=== PATIENT | female | born 1995 | race Caucasian/White ===

== ENCOUNTER 2016-08-07 23:19 | Emergency (ER) | payer OTHER ==
[2016-08-07] MEDS ORDERED: LACTATED RINGERS 1,000 ML ONE (23:37)
[2016-08-07] MEDS ORDERED: ONDANSETRON 4 MG/2ML 2 ML VIAL ONE (23:37)
[2016-08-08 00:50] LABS: ABSOLUTE NEUTROPHIL COUNT 4.6 K/mm3 (1.8-7.7); BASO % 0.4 % (0.2-1.0); EOS % 0.4 % (0.9-2.9); HEMATOCRIT 38.1 % (37.0-47.0); HEMOGLOBIN 12.4 gm/l (12.0-16.0); IMM NEUT% 0.5 % (0-1); LYMPH % 26.4 % (15-45); MEAN CELL VOLUME 85.6 fl (81.0-99.0); MEAN CORPUSCULAR HEMOGLOBIN 27.9 pg (27.0-31.0); MEAN CORPUSCULAR HGB CONC 32.5 g/dl (33.0-37.0); MEAN PLATELET VOLUME 9.4 fl (7.4-10.4); MONO # 0.9 (0.0-0.8); MONO % 12.3 % (4-12); PLATELET COUNT 387 K/mm3 (130-400)
[2016-08-08 01:23] LABS: ALB/GLOB RATIO 1.1 (>1.0); ALBUMIN 3.9 gm/dL (3.5-5.7); CALCIUM 9.4 mg/dL (8.6-10.3)
[2016-08-08 02:01] LABS: SPECIFIC GRAVITY 1.015 (1.001-1.030); URINE APPEARANCE CLEAR; URINE BILIRUBIN NEGATIVE (NEGATIVE); URINE BLOOD NEGATIVE (NEGATIVE); URINE COLOR YELLOW; URINE GLUCOSE (UA) NEGATIVE (NEGATIVE); URINE LEUKOCYTE ESTERASE NEGATIVE (NEGATIVE); URINE NITRITE NEGATIVE (NEGATIVE); URINE PROTEIN NEGATIVE (NEGATIVE); URINE UROBILINOGEN NORMAL (0-1 mg/dl)
[2016-08-08 02:06] LABS: HCG,QUALITATIVE URINE NEGATIVE
[2016-08-08 02:13] LABS: AMPHETAMINES/METHAMPHETAMINES NEGATIVE (NEGATIVE); COCAINE NEGATIVE (NEGATIVE); MARIJUANA NEGATIVE (NEGATIVE); METHADONE NEGATIVE (NEGATIVE); OPIATES NEGATIVE (NEGATIVE); TRICYCLIC ANTIDEPRESSANTS NEGATIVE (NEGATIVE)
== END 2016-08-08 02:22 | disposition home or self-care (01) ==
LOC: ED 23:19
DX: F10.129 Alcohol abuse with intoxication, unspecified (principal); R11.2 Nausea with vomiting, unspecified; R73.09 Other abnormal glucose; Y90.8 Blood alcohol level of 240 mg/100 ml or more
CPT/HCPCS: 81025; 85025; 80305; 80053; 80307; 81003; 36415; 99284 ×2; 96374; 96361 ×2; 82962; J2405; J7120